=== PATIENT | male | born 1965 | race Caucasian/White ===

== ENCOUNTER 2021-02-13 16:32 | Emergency (ER) | payer OTHER, SELFPAY ==
--- NOTE | ~2021-02-13 | CT_ITS ---
EXAMINATION: CTA chest PE protocol DATE: 02/13/2021 20:44 INDICATION: Cough, fever, body aches, COVID positive and elevated d-dimer. TECHNIQUE: Computed tomography (CT) pulmonary angiogram of the chest was performed with 100 mL Omnipa que-350 intravenous contrast. Additional 3D reconstructions utilizing coronal maximum intensity proje ction (MIP) were performed. Automated exposure control and iterative reconstruction technique were em ployed. The dose-length product was 415.69 mGy-cm. COMPARISON: None FINDINGS: Excellent contrast opacification of the pulmonary arteries. There is moderate streak artifact from de nse contrast in the superior vena cava and right atrium. Mild scattered respiratory motion artifact w hich does not significantly limit evaluation. No pulmonary embolism. Patchy groundglass opacities wit h peripheral and lower lung predominance consistent with COVID pneumonia. More dense consolidation at the basilar left lower lobe with volume loss and bronchovascular crowding more consistent with atele ctasis. No pulmonary edema, pleural effusion or pneumothorax. 5 mm right middle lobe subpleural nodul e. Heart size is normal. No pericardial effusion. Thoracic aorta is normal in caliber with no dissect ion. No pathologically enlarged thoracic lymphadenopathy. Just upper abdomen is unremarkable. Mild th oracic and moderate lower cervical spondylosis. IMPRESSION: 1. No pulmonary embolism. 2. Patchy bilateral peripheral and lower lung predominant groundglass opacities consistent with COVID pneumonia. 3. 5 mm right middle lobe nodule. If the patient is low risk for lung cancer, no follow-up is needed. If the patient is high risk (i.e., history of smoking or asbestos or significant radiation exposure) , optional follow-up chest CT could be considered at 12 months. Reviewed, dictated and finalized at location H. AL HYGIENE CONSULTANT IMPRESSION: 1. No pulmonary embolism. 2. Patchy bilateral peripheral and lower lung predominant groundglass opacities consistent with COVID pneumonia. 3. 5 mm right middle lobe nodule. If the patient is low risk for lung cancer, n o follow-up is needed. If the patient is high risk (i.e., history of smoking or asbestos or significant radiation exposure), optional follow-up chest CT could be considered at 12 months.
--- NOTE | ~2021-02-13 | XR_ITS ---
EXAMINATION: XR chest 1V portable DATE: 02/13/2021 19:26 INDICATION: Cough, shortness of breath and COVID positive. TECHNIQUE: frontal view of the chest was obtained. COMPARISON: None FINDINGS: Mild patchy airspace opacities in the right mid and lower and left lower lung zones. No pleural effus ion or pneumothorax.. The cardiomediastinal silhouette is normal. IMPRESSION: 1. Mild patchy airspace opacities in the right mid and lower and left lower lung zones consistent wit h COVID pneumonia. Reviewed, dictated and finalized at location H. NT RAILROAD CAR LOADER IMPRESSION: 1. Mild patchy airspace opacities in the right mid and lower and left lower yennifer g zones consistent with COVID pneumonia.
[2021-02-13 16:38] VITALS: BP 149/91; PULSE 84; RESP 16; TEMP 35.9; O2SAT 96
[2021-02-13 16:52] VITALS: RESP 18; O2SAT 98
--- NOTE | 2021-02-13 19:03 | ECG_ITS ---
Measurements Intervals [place] Rate: 82 P: 46 DE: 157 QRS: 5 QRSD: 109 T: -3 QT: 357 QTc: 417 Interpretive Statements SINUS RHYTHM BORDERLINE ST-T WAVE ABNORMALITY- INFERIOR LEADS BASELINE ARTIFACT- AVR, AVL, AVF BORDERLINE ECG Electronically Signed On 02-13-2021 21:05:23 CREATIVE DESIGNER by Perry Byrd D.O.
--- NOTE | 2021-02-13 19:04 | ED.GENADULT ---
HPI - General Adult General Chief complaint: Upper Respiratory Infection Stated complaint: covid positive 10 days ago/fever/fatigue/cough Time Seen by Provider: 02/13/21 18:15 Source: patient Mode of arrival: ambulatory Limitations: no limitations History of Present Illness HPI narrative: Patient presents for evaluation of fever and cough. He states his symptoms started about thirteen days ago. He went to [facility] twelve days ago and had a positive COVID test. He is concerned about the length of time for which his symptoms have persisted. He reports body aches and fatigue. He denies chills, nausea, vomiting, diarrhea, abdominal pain, chest pain and shortness of breath. He was initially attempting not to take any medication for his symptoms. However in the past four days he has been taking tylenol and ibuprofen for his symptoms. His and her two children also have COVID. He did receive J+J COVID vaccination. He does not smoke. No personal hx of VTE, however his mother had a DVT. Related Data Home Medications Medication Instructions Recorded Confirmed bupropion HCl 300 mg PO QAM 02/13/21 levothyroxine 100 mcg PO DAILY 02/13/21 Allergies Allergy/AdvReac Type Severity Reaction Status Date / Time Penicillins Allergy Unknown Verified 02/13/21 16:53 Review of Systems Review of Systems: CONSTITUTIONAL: Reports fever and fatigue. Denies chills or sweats. EYES: Denies visual changes, redness, or discharge. ENT: Reports sinus congestion. Denies rhinorrhea, sore throat, or otalgia. CARDIOVASCULAR: Denies chest pain, palpitations, or edema. RESPIRATORY: Reports cough. Denies SOB GASTROINTESTINAL: Denies abdominal pain, nausea, vomiting, or diarrhea. GENITOURINARY: Denies dysuria or hematuria. SKIN: Denies rash or itching. MUSCULOSKELETAL: Reports generalized body aches NEUROLOGIC: Denies headache, numbness, dizziness, or weakness. PSYCHIATRIC: Denies anxiety or depression. [facility], [facility] Past Medical History Medical History (Updated 02/13/21 @ 22:08 by Logan Tabares, BARRON, OFELIA) Subclinical hypothyroidism Surgical History Surgical History No pertinent past surgical history Family History Family History Mother DVT (deep venous thrombosis) Social History Social History Alcohol intake: current Alcohol use details: social Substance use: never Living arrangements: with family Gender identity (if verbalized by the patient): Male Sexual Orientation (if Verbalized by the Patient): Straight or Heterosexual Spiritual care concerns: No Exam Narrative: GENERAL: Well-appearing, well-nourished, and in no acute distress. HEAD: Normocephalic, atraumatic. EYES: PERRLA and EOMI. ENT: Nares clear, no rhinorrhea or epistaxis. Mucous membranes moist. Oropharynx without tonsillar hypertrophy exudate or other lesions. Bilateral TMs pearly spencer nonbulging NECK: Supple. No adenopathy or masses. No carotid bruits or JVD CHEST: Clear to auscultation. Cough noted on exam. No respiratory distress. No wheezes rales or rhonchi HEART: Regular rate and rhythm. No murmur heard. Normal peripheral pulses. ABDOMEN: Soft, nontender, nondistended, normal active bowel sounds. EXTREMITIES: Normal range of motion. No edema. SKIN: Warm, dry, no rash. NEURO: No focal deficits. Alert and oriented x3. PSYCH: Normal mood and affect. Course Course Emergency Course: This is a 55-year-old male who presented with complaints of persistent cough and fever with a recent diagnosis of COVID. CXR showed mild patchy airspace opacities in the right mid and lower and left lower lung zones consistent with COVID pneumonia. D dimer mildly elevated. CTA chest showed no pulmonary embolism, patchy bilateral peripheral and lower lung predominant groundglass opacities consiste
[2021-02-13 19:25] VITALS: BP 145/58; PULSE 80; RESP 20; O2SAT 97
[2021-02-13 19:38] LABS: Basophils Percent Auto 0.5 % (0.2-1.2); Eosinophils Absolute Auto 0.1 K/mm3 (0-0.3); Eosinophils Percent Auto 2.3 % (0-4.4); Hematocrit 40.3 % (42.0-52.0); Hemoglobin 13.3 g/dL (14.0-18.0); Immature Granulocyte Absolute 0.02 K/mm3 (0.00-0.031); Immature Granulocyte Percent A 0.3 % (0-0.5); Lymphocytes Absolute Auto 1.77 K/mm3 (0.9-3.2); Lymphocytes Percent Auto 28.6 % (18.3-44.2); Mean Corpuscular Hemoglobin 29.4 pg (26-34); Mean Corpuscular Volume 89.2 fl (80-100); Monocytes Absolute Auto 0.6 K/mm3 (0.1-0.6); Neutrophils Absolute Auto 3.6 K/mm3 (1.3-6.7); Neutrophils Percent Auto 58.3 % (45.5-73.1); Platelet Count Result 217 k/mm3 (150-375); Red Blood Count 4.52 M/mm3 (4.6-6.20); Red Cell Distribution Width 13.4 % (11.5-14.5); White Blood Count 6.2 K/mm3 (4.5-10.0)
[2021-02-13 19:46] LABS: INR 0.9; Prothrombin Time 12.2 Seconds (11.1-14.7)
[2021-02-13 19:47] LABS: Partial Thromboplastin Time 26.4 SECONDS (22.3-36.8)
[2021-02-13 19:49] LABS: Alanine Aminotransferase 17 U/L (4-50); Albumin Level 4.6 g/dL (3.5-5.1); Alkaline Phosphatase 63 U/L (38-126); Anion Gap 7 mmol/L (8-16); Aspartate Amino Transferase 28 U/L (17-59); Bilirubin,Total 0.3 mg/dL (0.2-1.3); Blood Urea Nitrogen 14 mg/dL (9-20); Calcium 9.3 mg/dL (8.4-10.2); Carbon Dioxide 26 mmol/L (22-30); Chloride 102 mmol/L (98-107); Estimated CRCL calculation 86 ml/min; Estimated Glomerular Filt Rate > 60; Glucose 100 mg/dL (65-110); Potassium 4.4 mmol/L (3.4-5.0); Sodium 135 mmol/L (137-145)
[2021-02-13 19:50] LABS: D Dimer 0.52 ug/mL (<0.48)
[2021-02-13 20:01] LABS: Troponin I < 0.012 ng/mL (0.000-0.034)
[2021-02-13 20:45] VITALS: BP 153/86; PULSE 79; RESP 20; TEMP 37.1; O2SAT 95
[2021-02-13] MEDS: AZITHROMYCIN 250 MG TABLET 500 MG PO (22:38)
[2021-02-13] MEDS: DOXYCYCLINE HYCLATE 100 MG TABLET PO (22:38)
[2021-02-13 22:40] VITALS: BP 138/91; PULSE 80; RESP 20; TEMP 37.5; O2SAT 100
== END 2021-02-13 22:36 | disposition home or self-care (01) ==
PROVIDERS: Emergency Provider Nurse Practitioner
DX: U07.1 COVID-19 (principal); J12.82 Pneumonia due to coronavirus disease 2019; R91.1 Solitary pulmonary nodule; E03.9 Hypothyroidism, unspecified; R94.31 Abnormal electrocardiogram [ECG] [EKG]
CPT/HCPCS: 36415; 71045; 71275; 80053; 84484; 85025; 85380; 85610; 85730; 93005; 99284; A9270; Q9967

== ENCOUNTER 2022-12-07 13:22 | Outpatient (NON) | payer OTHER, SELFPAY ==
[2022-12-07 14:25] LABS: Basophils Absolute Auto 0.1 K/mm3 (0.0-0.1); Basophils Percent Auto 0.6 % (0.2-1.2); Eosinophils Absolute Auto 0.3 K/mm3 (0-0.3); Eosinophils Percent Auto 2.5 % (0-4.4); Hemoglobin 11.4 g/dL (14.0-18.0); Immature Granulocyte Absolute 0.14 K/mm3 (0.00-0.031); Immature Granulocyte Percent A 1.4 % (0-0.5); Lymphocytes Absolute Auto 1.57 K/mm3 (0.9-3.2); Mean Corpuscular HGB Conc 30.8 g/dl (32-36); Mean Corpuscular Hemoglobin 28.6 pg (26-34); Mean Platelet Volume 9.6 fl (7.4-10.4); Monocytes Absolute Auto 0.7 K/mm3 (0.1-0.6); Monocytes Percent Auto 7.5 % (2.6-8.5); Neutrophils Absolute Auto 7.1 K/mm3 (1.3-6.7); Platelet Count Result 439 k/mm3 (150-375); Red Blood Count 3.98 M/mm3 (4.6-6.20); Red Cell Distribution Width 14.5 % (11.5-14.5); White Blood Count 9.8 K/mm3 (4.5-10.0)
[2022-12-07 14:38] LABS: Anion Gap 7 mmol/L (8-16); Blood Urea Nitrogen 15 mg/dL (9-20); Calcium 9.5 mg/dL (8.4-10.2); Carbon Dioxide 31 mmol/L (22-30); Chloride 97 mmol/L (98-107); Estimated Glomerular Filt Rate 57; Glucose 84 mg/dL (65-110); Potassium 5.1 mmol/L (3.4-5.0); Sodium 135 mmol/L (137-145)
== END 2022-12-07 13:23 | disposition home or self-care (01) ==
LOC: HOME HLTH 13:25
PROVIDERS: Visit Provider Internal Medicine
DX: I11.0 Hypertensive heart disease with heart failure (principal); I50.23 Acute on chronic systolic (congestive) heart failure; Z48.812 Encounter for surgical aftercare following surgery on the circulatory system; Z95.2 Presence of prosthetic heart valve
CPT/HCPCS: 80048; 85025

== ENCOUNTER 2022-12-13 13:58 | Outpatient (NON) | payer OTHER, SELFPAY ==
[2022-12-13 15:01] LABS: Hemoglobin 10.9 g/dL (14.0-18.0); Mean Corpuscular HGB Conc 31.1 g/dl (32-36); Mean Corpuscular Hemoglobin 28.8 pg (26-34); Mean Corpuscular Volume 92.3 fl (80-100); Mean Platelet Volume 9.5 fl (7.4-10.4); Platelet Count Result 445 k/mm3 (150-375); Red Blood Count 3.79 M/mm3 (4.6-6.20); Red Cell Distribution Width 14.6 % (11.5-14.5)
[2022-12-13 15:11] LABS: Anion Gap 8 mmol/L (8-16); Blood Urea Nitrogen 17 mg/dL (9-20); Carbon Dioxide 25 mmol/L (22-30); Chloride 103 mmol/L (98-107); Estimated Glomerular Filt Rate > 60; Glucose 118 mg/dL (65-110); Potassium 4.1 mmol/L (3.4-5.0); Sodium 136 mmol/L (137-145)
== END 2022-12-13 13:59 | disposition home or self-care (01) ==
LOC: HOME HLTH 14:01
PROVIDERS: Visit Provider Surgery
DX: I50.23 Acute on chronic systolic (congestive) heart failure (principal); I11.0 Hypertensive heart disease with heart failure; Z95.2 Presence of prosthetic heart valve; Z48.812 Encounter for surgical aftercare following surgery on the circulatory system
CPT/HCPCS: 80048; 85027

== ENCOUNTER 2023-02-06 07:15 | Outpatient (RCR) | payer OTHER, SELFPAY | END 2023-02-23 07:49 | disposition home or self-care (01) | LOC: ANHCPREHAB 07:15 | PROVIDERS: PCP Internal Medicine; Visit Provider Internal Medicine Cardiovascular Disease | DX: Z95.2 Presence of prosthetic heart valve (principal) | CPT/HCPCS: 93798 ==

== ENCOUNTER 2024-03-09 09:32 | Emergency (ER) | payer OTHER, SELFPAY ==
[2024-03-09 09:34] VITALS: BP 147/90; PULSE 66; RESP 18; TEMP 36.6; O2SAT 100
--- NOTE | 2024-03-09 11:48 | ED.GENADULT ---
HPI - General Adult General Chief complaint: Wound/Laceration Stated complaint: laceration to L. thumb Time Seen by Provider: 03/09/24 10:25 History of Present Illness HPI narrative: 58-year-old male presents to the emergency department for evaluation for laceration to the left thumb. Patient was using a knife to prepare food when he inadvertently caused a flap laceration to the left thumb. Patient does take an aspirin but is on no other blood thinners. Related Data Home Medications ?Medication ?Instructions ?Recorded ?Confirmed ?Last Taken ?Type bupropion HCl 300 mg 24 hr tablet, 300 mg PO QAM 02/13/21 Unknown History extended release levothyroxine 100 mcg tablet 100 mcg PO DAILY 02/13/21 Unknown History Allergies Allergy/AdvReac Type Severity Reaction Status Date / Time Penicillins Allergy Unknown Verified 03/09/24 09:33 Review of Systems Review of Systems: All systems reviewed & are unremarkable except as noted in HPI and below PMFSH Past Medical History Medical History (Updated 03/09/24 @ 12:16 by Felipe Trevino MD) Subclinical hypothyroidism Surgical History Surgical History No pertinent past surgical history Family History Family History Mother DVT (deep venous thrombosis) Social History Social History Smoking status: Never smoker Second hand tobacco smoke exposure: No Alcohol intake: current Alcohol use details: social Substance use: never Living arrangements: with family Gender identity (if verbalized by the patient): Male Sexual Orientation (if Verbalized by the Patient): Straight or Heterosexual Spiritual care concerns: No Exam Narrative: APPEARANCE: Well appearing, no pain, no distress, well-nourished. HEAD: normocephalic, atraumatic. EYES: PERRLA/EOMI, conjunctivae clear. NOSE: Normal no drainage EARS:TMS clear with good light reflex. THROAT: Pharynx clear, no exudate. NECK: Supple. No adenopathy, no masses. RESPIRATORY: Airway patent, respirations nonlabored. Clear to auscultation bilaterally, no rales, rhonchi, wheezing. CARDIOVASCULAR: Regular rate and rhythm without murmurs rubs or gallops. ABDOMINAL: Soft, nontender, nondistended, normal bowel sounds MUSCULOSKELETAL: Moves all extremities. Strength/ROM intact, No edema, No calf tenderness. NEURO: Alert. Cranial nerves II through XII intact. Good gait. Good coordination SKIN: Flap laceration to left thumb, no vascular tendon or ligament injury Course Vital Signs Vital signs: Vital Signs Temperature 97.9 F 03/09/24 09:34 Pulse Rate 03/09/24 09:34 Respiratory Rate 03/09/24 09:34 Blood Pressure 147/90 H 03/09/24 09:34 Pulse Oximetry 100 03/09/24 09:34 Oxygen Delivery Room Air 03/09/24 09:34 Temperature 97.9 F 03/09/24 09:34 Pulse Rate 03/09/24 09:34 Respiratory Rate 03/09/24 09:34 Blood Pressure 147/90 H 03/09/24 09:34 Pulse Oximetry 100 03/09/24 09:34 Oxygen Delivery Room Air 03/09/24 09:34 Procedures Laceration Laceration 1: Date: 03/09/24 Time: 12:13 Site: upper extremity Side (If applicable): left Size (cm): 4 Description: flap and irregular Depth: simple, single layer Local Anesthetic: lidocaine 1% Amount of anesthesia used (mL): 5 Pre-repair: wound explored, irrigated and irrigated extensively ====== Skin Level ====== Skin layer closed with: prolene Size (cm): 5-0 Number of sutures: 8 Technique: simple, interrupted ====== Subcutaneous Layer ====== ====== Muscle Layer ====== ====== Tendon Layer ====== Medical Decision Making MDM Narrative Medical decision making narrative: 58-year-old male present to the emergency department for evaluation for a laceration to the left thumb. Laceration was repaired as described in the procedure note. Patient's tetanus is updated. All questions concerns were addressed patient was well-appearing at time of discharge. Differential Diagnosis Differential Diagnosis: Laceration, tendon injury, ligament injury, arterial injury Vital Signs Vital Signs: Vital Signs Temperature 97.9 F 03/09/24 09:34 Pulse Rate 03/09/24 09:34 Respiratory Rate 18 03/09/24 09:34 Blood Pressure 147/90 H 03/09/24 09:34 Pulse Oximetry 100 03/09/24 09:34 Oxygen Delivery Room Air 03/09/24 09:34 Temperature 97.9 F 03/09/24 09:34 Pulse Rate 66 03/09/24 09:34 Respiratory Rate 18 03/09/24 09:34 Blood Pressure 147/90 H 03/09/24 09:34 Pulse Oximetry 100 03/09/24 09:34 Oxygen Delivery Room Air 03/09/24 09:34 Discharge Plan Discharge Clinical Impression: Laceration Patient Disposition: Home, Self-Care Condition: Stable Instructions: Antibiotic Form, Care For Your Stitches (ED) Additional Instructions: Wound care as directed. Your sutures need to be removed in 7-10 days. Have close follow-up with your primary care physician. If you have any worsening symptoms then please call or return to the emergency department. Patient Language: Ukrainian Prescriptions: No Action levothyroxine 100 mcg Tablet 100 mcg PO DAILY bupropion HCl 300 mg Tablet Extended Release 24 Hr 300 mg PO QAM doxycycline hyclate 100 mg tablet 100 mg PO BID 10 Days Qty: 20 0RF azithromycin 250 mg tablet See Rx Instructions .ROUTE .COMPLEX Qty: 6 0RF Rx Instructions: For 250 mg dose pack: take 500 mg today (day 1), then 250 mg for 4 days (days 2-5) azithromycin 250 mg tablet See Rx Instructions .ROUTE .COMPLEX Qty: 6 0RF Rx Instructions: For 250 mg dose pack: take 500 mg today (day 1), then 250 mg for 4 days (days 2-5) doxycycline hyclate 100 mg capsule 100 mg PO BID Qty: 20 0RF Follow-up/Referrals: PHYSICIAN NOT ON STAFF,NONSTAFF [Primary Care Provider] -
[2024-03-09] MEDS: TETANUS,DIPHTHERIA,AC PERTUSSIS ADULT (0.5 ML) BOOSTRIX IM (12:21)
--- OUTSIDE RECORDS SUMMARY | 2024-03-14 08:46 | XMS_ITS | Clinical Summary ---
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 Penicillins Unknown 08/10/2016 Medications aspirin (ECOTRIN EC) 81 mg Tablet, Delayed Release (E.C.) Take 81 mg by mouth daily. 3 Active metoprolol succinate (TOPROL XL) 25 mg Extended Release 24 hour tablet Take 25 mg by mouth 2 times daily. 3 Active acetaminophen (TYLENOL) 325 mg tablet Take 325 mg by mouth every 6 hours as needed. 3 Active levothyroxine 100 mcg tabletIndications:O ther specified hypothyroidism take 1 tablet by mouth every day 90 Tablet 2 4 Active ALPRAZolam (XANAX) 0.5 mg tabletIndications:A nxiety state TAKE 1 TABLET (0.5 MG) BY MOUTH NIGHTLY NEEDED FOR ANXIETY 30 Tablet 4 Active buPROPion HCL (WELLBUTRIN XL) 300 mg Extended Release 24 hour tablet take 1 tablet by mouth every day in the morning 90 Tablet 3 4 Active losartan (COZAAR) 25 mg tablet 1 tablet(s), Oral, daily, 90 tablet(s), 4, Route to Pharmacy [facility] [id number], [id number] , 189, cm, 09/10/23 10:10:00 CDT, Height, 106.5, kg, 09/10/23 10:10:00 CDT, Weight Active Active Problems Problem Noted Date Diagnosed Date Pneumonia of both lungs due to infectious organi sm 02/17/2021 History of 2019 novel coronavirus disease (COVID -19) 02/17/2021 Hypothyroidism 08/26/2016 Encounters Date Type Department Care Team Description 02/27/2024 External Device Data [facility] Provider, Abstract 01/22/2024 1:00 PM DEBATE DIRECTOR Office Visit [address] [address] Yonis Bowling MD Preventative health care (Primary Dx); Hypertension, unspecified type; Other specified hypothyroidism; Pure hypercholesterolemia ; Current moderate episode of major depressive disorder without prior episode (CMS/HCC); Screening PSA (prostate specific antigen); Screening for colon cancer; Declined influenza vaccine 01/12/2024 Orders Only [address] [address] Provider, Abstract 2023 External Device Data [facility] Provider, Abstract 12/19/[address] [address] Yonis Bowling MD from Last 3 Months Immunizations Immunization Administration Dates Next Due (ADACEL/BOOSTRIX)(10 YR UP) TDAP VACCINE, 0.5ML, IM 08/03/2018 Family History Medical History Relation Name Comments Cancer Mother leukemia Breast Cancer Neg Hx Colon Cancer Neg Hx Relation Name Status Comments Mother Social History Tobacco Use Types Packs/Day Years Used Date Smoking Tobacco: Never Smokeless Tobacco: Never Tobacco Cessation:Counseling Given: No Alcohol Use Standard Drinks/Week Comments Yes 0 (1 standard drink = 0.6 oz pur e alcohol) occasional Sex and Gender Information Value Date Recorded Sex Assigned at Not on file Legal Sex Male 1:40 PM CDT Gender Identity Not on file Sexual Orientation Not on file Last Filed Vital Signs Vital Sign Reading Time Taken Comments Blood Pressure 110/70 01/22/2024 12:52 PM DEBATE DIRECTOR Pulse 66 01/22/2024 12:52 PM DEBATE DIRECTOR Temperature 36.7 ??C (98.1 ??F) 01/22/2024 12:[address] Respiratory Rate 16 01/07/2020 7:02 PM DEBATE DIRECTOR Oxygen Saturation 96% 01/22/2024 12:52 PM DEBATE DIRECTOR Inhaled Oxygen Concentration - - Weight 97.5 kg (215 lb) 01/22/2024 12:52 PM DEBATE DIRECTOR Height 188 cm (6' 2 ) 01/22/2024 12:52 PM DEBATE DIRECTOR Body Mass Index 27.6 01/22/2024 12:52 PM DEBATE DIRECTOR Plan of Treatment Health Maintenance Due Date Last Done Comments Pre-Diabetes and Diabetes Screening 1965 HEPATITIS B VACCINES (1 of 3 - 19+ 3-dose series) 1984 COLORECTAL SCREENING 2010 Colorectal Cancer Screening 2010 FIT-DNA Q 3 years 2010 FIT/FOBT Q 1 year 2010 Flex Sig/CT Colonography Q 5 years 2010 ZOSTER VACCINE (1 of 2) 12/21/2015 Preventative Visit- Commercial 02/21/2024 01/22/2024, 07/29/2022, 07/29/2022, Additional history exists DTAP/TDAP/TD VACCINES (2 - Td or Tdap) 08/03/2028 08/03/2018 INFLUENZA VACCINE Completed 01/22/2024, , 02/17/2021 PNEUMOCOCCAL VACCINE 0-64 YEARS Aged Out No longer eligible based on patient's age to complete this topic Procedures Procedure Name Priority Date/Time Associated Diagnosis Comments CT CHEST WO CONTRAST Routine 01/11/2024 10:16 AM DEBATE DIRECTOR ECHO COMPLETE Routine 01/11/2024 10:14 AM DEBATE DIRECTOR from Last 3 Months Results * CT CHEST WO CONTRAST (01/11/2024 10:16 AM DEBATE DIRECTOR) Anatomical Region Laterality Modality Chest Other us Abstract Provider CT ORDERABLES Final Result * ECHO COMPLETE - CONTRAST AND STRAIN IF INDICATED (01/11/2024 10:14 AM DEBATE DIRECTOR) us Abstract Provider US ORDERABLES Final Result [facility] CLIA# [id number] [address] [place] [phone] from Last 3 Months Insurance OUT OF STATE CIG[employer] OPEN ACCESS HMO RX [employer] Express Care Teams Portable Feed Mill Operator Relationship Specialty Start Date End Date Yonis Bowling MD [address] [place] [address] PCP - General Internal Medicine 08/10/16
== END 2024-03-09 12:32 | disposition home or self-care (01) ==
PROVIDERS: Emergency Provider Emergency Medicine
DX: S61.012A Laceration without foreign body of left thumb without damage to nail, initial encounter (principal); Z23 Encounter for immunization; E03.8 Other specified hypothyroidism; W26.0XXA Contact with knife, initial encounter; Y93.G1 Activity, food preparation and clean up
CPT/HCPCS: 12002; 90471; 90715; 99282; J2003

== ENCOUNTER 2024-03-18 10:57 | Emergency (ER) | payer OTHER, SELFPAY ==
[2024-03-18 11:12] VITALS: BP 132/86; PULSE 66; RESP 18; TEMP 36.7; O2SAT 97
--- NOTE | 2024-03-18 11:47 | ED_ITS ---
HPI - Wound/Laceration General Chief Complaint: Wound/Laceration Stated Complaint: Stitches Removal Time Seen by Provider: 03/18/24 11:47 Source: patient Mode of arrival: ambulatory Limitations: no limitations History of Present Illness HPI narrative: 58 y/o male presented for suture removal. States he had 8 sutures placed to the left thumb 9 days ago. Denies complications. Has been applying neosporin and bandage. Related Data Home Medications ?Medication ?Instructions ?Recorded ?Confirmed ?Last Taken ?Type bupropion HCl 300 mg 24 hr tablet, 300 mg PO QAM 02/13/21 03/18/24 Unknown History extended release levothyroxine 100 mcg tablet 100 mcg PO DAILY 02/13/21 03/18/24 Unknown History alprazolam 0.5 mg tablet 0.5 mg PO PRN 03/18/24 03/18/24 Unknown History aspirin 81 mg tablet,delayed 81 mg PO DAILY 03/18/24 03/18/24 Unknown History release (Adult Low Dose Aspirin) losartan 25 mg tablet 25 mg PO DAILY 03/18/24 03/18/24 Unknown History metoprolol succinate 25 mg 25 mg PO DAILY 03/18/24 03/18/24 Unknown History tablet,extended release 24 hr Allergies Allergy/AdvReac Type Severity Reaction Status Date / Time Penicillins Allergy Unknown Verified 03/18/24 11:22 Review of Systems Review of Systems: CONSTITUTIONAL: Denies body aches, fever, chills, or sweats. EYES: Denies visual changes, redness, or discharge. ENT: Denies rhinorrhea, congestion CARDIOVASCULAR: Denies chest pain, palpitations, or edema. RESPIRATORY: Denies cough or dyspnea. GASTROINTESTINAL: Denies abdominal pain, nausea, vomiting, or diarrhea. SKIN: reports sutures left thumb MUSCULOSKELETAL: Denies back pain, joint pain, or myalgia. NEUROLOGIC: Denies headache, numbness, tingling, or weakness. [facility] Past Medical History Medical History Subclinical hypothyroidism Surgical History Surgical History No pertinent past surgical history Family History Family History Mother DVT (deep venous thrombosis) Social History Social History Smoking status: Never smoker Second hand tobacco smoke exposure: No Alcohol intake: current Alcohol use details: social Substance use: never Living arrangements: with family Gender identity (if verbalized by the patient): Male Sexual Orientation (if Verbalized by the Patient): Straight or Heterosexual Spiritual care concerns: No Comments At time of signature, I have reviewed and agree with nursing past medical, surgical, social and family history unless otherwise noted. Please see nursing chart for further information. There is no relevant family history pertinent to the presenting complaint Exam Narrative: GENERAL: Well-appearing ENT: Mucous membranes moist. Oropharynx without edema, erythema or lesions. NECK: Supple. No lymphadenopathy CHEST: Clear to auscultation. HEART: Regular rate and rhythm. SKIN: Warm, dry. Left thumb, radial aspect with [address] NEURO: Alert and oriented x3. Course Course Emergency Course: Patient is aware of diagnosis, understands and agrees to treatment plan. Anticipatory guidance given. Patient agrees to follow-up as directed and is aware of reasons to seek care at the emergency department. Portions of this record may have been created with voice recognition software Level of Care: Express Care Visit Vital Signs Vital signs: Vital Signs Temperature 98.0 F 03/18/24 11:12 Pulse Rate 66 03/18/24 11:12 Respiratory Rate 18 03/18/24 11:12 Blood Pressure 132/86 03/18/24 11:12 Pulse Oximetry 97 03/18/24 11:12 Oxygen Delivery Room Air 03/18/24 11:12 Temperature 98.0 F 03/18/24 11:12 Pulse Rate 66 03/18/24 11:12 Respiratory Rate 18 03/18/24 11:12 Blood Pressure 132/86 03/18/24 11:12 Pulse Oximetry 97 03/18/24 11:12 Oxygen Delivery Room Air 03/18/24 11:12 Reviewed Procedures Other Procedure Procedure 1: Other Procedure: Eight sutures were removed from the left thumb without difficulty, no s/s infection. Steri-Strips applied. MDM - Wound/Laceration MDM Narrative Medical decision making narrative: Discussed physical exam findings, steri strips applied to lac after sutures removed. Advised supportive measures and signs/symptoms to go to the ER. Pt is appropriate for outpt treatment and f/u. Differential Diagnosis Differential diagnosis: Likely laceration, abscess, abrasion and avulsion of skin Discharge Plan Discharge Clinical Impression: Encounter for removal of sutures Patient Disposition: Home, Self-Care Condition: Stable Instructions: Steristrips (ED) Additional Instructions: Steri-Strips will roll off on their own within 14 days Do not soak your wound. Avoid frequent or prolonged contact with water, including heavy perspiration. This may loosen the skin glue before the wound is healed. Keep the area clean and dry - cleanse with warm water and mild soap and allow to fully dry. Watch for worsening symptoms including pain, redness, swelling, streaking, pus/drainage, fever. Go to the ER with any of these symptoms or concerns. Follow up with primary care provider in 1 week as needed. Patient Language: Malay Prescriptions: No Action losartan 25 mg tablet 25 mg PO DAILY metoprolol succinate 25 mg tablet extended release 24 hr 25 mg PO DAILY alprazolam 0.5 mg tablet 0.5 mg PO PRN aspirin [Adult Low Dose Aspirin] 81 mg tablet,delayed release (DR/EC) 81 mg PO DAILY levothyroxine 100 mcg Tablet 100 mcg PO DAILY bupropion HCl 300 mg Tablet Extended Release 24 Hr 300 mg PO QAM Follow-up/Referrals: PHYSICIAN,ASSEMBLER [Primary Care Provider] -
== END 2024-03-18 12:02 | disposition home or self-care (01) ==
PROVIDERS: Emergency Provider Nurse Practitioner Family
DX: S61.012D Laceration without foreign body of left thumb without damage to nail, subsequent encounter (principal); X58.XXXD Exposure to other specified factors, subsequent encounter; E03.8 Other specified hypothyroidism; Z79.82 Long term (current) use of aspirin
CPT/HCPCS: 99211; G0463